=== PATIENT | male | born 1990 | race African-American/Black ===

== ENCOUNTER 2017-05-14 00:48 | Emergency (ER) | payer OTHER ==
[~2017-05-14] VITALS: Ht 172.7 cm; Wt 59.0 kg
[2017-05-14 00:52] VITALS: BP 124/80
== END 2017-05-14 01:42 | disposition home or self-care (01) ==
LOC: ER 00:53
DX: T45.0X5A Adverse effect of antiallergic and antiemetic drugs, initial encounter (principal); Y92.89 Other specified places as the place of occurrence of the external cause
CPT/HCPCS: 99281; A4606; Z7610; Z7502

== ENCOUNTER 2017-05-25 00:55 | Emergency (ER) | payer OTHER ==
[~2017-05-25] VITALS: Ht 170.2 cm; Wt 61.2 kg
--- NOTE | 2017-05-25 01:22 | NUR ---
PT BIBSELF C/O HAVING PANIC ATTACKS X PAST COUPLE DAYS FROM STRESS. PT AOX3 RR EVEN AND UNLABORED. NO SOB NOTED. NAD NOTED. NO NVD AT THIS TIME. PT PLACED ON MONITOR WAITING FOR MD BELCHER.
--- NOTE | 2017-05-25 01:54 | NUR ---
Patient discharged to home in stable condition. Written and verbal after care instructions given. Patient verbalizes understanding of instruction.
[2017-05-25 01:55] VITALS: BP 109/77
== END 2017-05-25 01:55 | disposition home or self-care (01) ==
LOC: ER 00:57
DX: F41.9 Anxiety disorder, unspecified (principal); G40.909 Epilepsy, unspecified, not intractable, without status epilepticus
CPT/HCPCS: 99284; A4606; Z7610

== ENCOUNTER 2017-06-18 14:36 | Emergency (ER) | payer OTHER ==
[~2017-06-18] VITALS: Ht 170.2 cm; Wt 61.2 kg
[2017-06-18 15:23] VITALS: BP 128/78
== END 2017-06-18 17:47 | disposition home or self-care (01) ==
LOC: ER 14:38
DX: J32.9 Chronic sinusitis, unspecified (principal); H61.22 Impacted cerumen, left ear; G40.909 Epilepsy, unspecified, not intractable, without status epilepticus; F41.9 Anxiety disorder, unspecified
CPT/HCPCS: A4606; Z7610

== ENCOUNTER 2017-06-24 12:12 | Emergency (ER) | payer OTHER ==
[~2017-06-24] VITALS: Ht 170.2 cm; Wt 59.9 kg
[2017-06-24 12:15] VITALS: BP 111/67
== END 2017-06-24 13:00 | disposition home or self-care (01) ==
LOC: ER 12:14
DX: Z00.8 Encounter for other general examination (principal); F41.9 Anxiety disorder, unspecified; G40.909 Epilepsy, unspecified, not intractable, without status epilepticus; R73.09 Other abnormal glucose
CPT/HCPCS: 82962; 99282; A4606; Z7610

== ENCOUNTER 2017-07-22 20:43 | Emergency (ER) | payer OTHER ==
[~2017-07-22] VITALS: Ht 170.2 cm; Wt 60.8 kg
[2017-07-22 20:52] VITALS: BP 127/82
--- NOTE | 2017-07-22 20:52 | NUR ---
REGGIE PAIN AT BEDSIDE FOR EVAL.
--- NOTE | 2017-07-22 20:59 | NUR ---
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
[2017-07-22 21:06] LABS: BASOPHILS # (AUTO) 0.1 /CMM (0.0-0.2); BASOPHILS % (AUTO) 2.1 % (0.0-2.0); EOSINOPHILS # (AUTO) 0.3 /CMM (0.0-0.7); EOSINOPHILS % (AUTO) 6.1 % (0.0-6.0); HEMATOCRIT 42 % (39-51); HEMOGLOBIN 14.4 g/dL (13.5-17.5); LYMPHOCYTES # (AUTO) 1.2 /CMM (0.8-4.8); LYMPHOCYTES % (AUTO) 25.1 % (20.0-44.0); MEAN CORPUSCULAR HEMOGLOBIN 27 PG (26.0-33.0); MEAN CORPUSCULAR HGB CONC 34 g/dl (31.0-36.0); MEAN CORPUSCULAR VOLUME 80 fL (80-96); MONOCYTES # (AUTO) 0.4 /CMM (0.1-1.30); NEUTROPHILS # (AUTO) 2.9 /CMM (1.8-8.9); NEUTROPHILS % (AUTO) 57.7 % (43.0-81.0); PLATELET COUNT (AUTO) 173 /CMM (150-450); RDW COEFFICIENT OF VARIATION 11.7 (11.5-15.0); RED BLOOD CELL COUNT(AUTO) 5.31 MIL/uL (4.5-6.0); WHITE BLOOD COUNT (AUTO) 4.9 K/uL (4.3-11.0)
[2017-07-22 21:18] LABS: CALCIUM, SERUM 8.5 mg/dL (8.5-10.1); CREATININE 1.2 mg/dL (0.6-1.3); POTASSIUM 3.7 mmol/L (3.5-5.1)
== END 2017-07-22 21:28 | disposition home or self-care (01) ==
LOC: ER 20:45
DX: M79.1 Myalgia (principal); R20.9 Unspecified disturbances of skin sensation; G40.909 Epilepsy, unspecified, not intractable, without status epilepticus; F41.9 Anxiety disorder, unspecified; Z88.1 Allergy status to other antibiotic agents; Z88.8 Allergy status to other drugs, medicaments and biological substances
CPT/HCPCS: 36415; 80048; 85025; 99284; A4606; Z7610

== ENCOUNTER 2017-08-25 20:46 | Emergency (ER) | payer OTHER ==
[~2017-08-25] VITALS: Ht 170.2 cm; Wt 61.2 kg
[2017-08-25 20:56] VITALS: BP 126/90
== END 2017-08-25 22:08 | disposition home or self-care (01) ==
LOC: ER 20:50
DX: F41.9 Anxiety disorder, unspecified (principal); G40.909 Epilepsy, unspecified, not intractable, without status epilepticus; Z88.1 Allergy status to other antibiotic agents; Z88.6 Allergy status to analgesic agent
CPT/HCPCS: 70450; 99284; A4606; Z7610

== ENCOUNTER 2017-10-08 16:11 | Emergency (ER) | payer OTHER ==
[~2017-10-08] VITALS: Ht 170.2 cm; Wt 61.2 kg
[2017-10-08 16:14] VITALS: BP 127/84
[2017-10-08] MEDS ORDERED: IBUPROFEN 600 MG TABLET PO ONE ×2 (16:53→17:00)
--- NOTE | 2017-10-08 16:55 | NUR ---
PT REFUSED MOTRIN. STS PAIN IS TOLERABLE AND HE IS COMFORTABLE AT THIS TIME.
[2017-10-08 17:06] LABS: BASOPHILS % (AUTO) 0.9 % (0.0-2.0); EOSINOPHILS # (AUTO) 0.1 /CMM (0.0-0.7); EOSINOPHILS % (AUTO) 3.3 % (0.0-6.0); HEMATOCRIT 44 % (39-51); HEMOGLOBIN 15.2 g/dL (13.5-17.5); LYMPHOCYTES # (AUTO) 1.3 /CMM (0.8-4.8); LYMPHOCYTES % (AUTO) 37.7 % (20.0-44.0); MEAN CORPUSCULAR HEMOGLOBIN 28 PG (26.0-33.0); MEAN CORPUSCULAR HGB CONC 34 g/dl (31.0-36.0); MEAN CORPUSCULAR VOLUME 81 fL (80-96); MONOCYTES # (AUTO) 0.2 /CMM (0.1-1.30); MONOCYTES % (AUTO) 5.6 % (2.0-12.0); NEUTROPHILS # (AUTO) 1.9 /CMM (1.8-8.9); NEUTROPHILS % (AUTO) 52.5 % (43.0-81.0); PLATELET COUNT (AUTO) 173 /CMM (150-450); RDW COEFFICIENT OF VARIATION 12.6 (11.5-15.0); RED BLOOD CELL COUNT(AUTO) 5.47 MIL/uL (4.5-6.0); WHITE BLOOD COUNT (AUTO) 3.6 K/uL (4.3-11.0)
[2017-10-08 17:17] LABS: CALCIUM, SERUM 8.9 mg/dL (8.5-10.1); CREATININE 1.2 mg/dL (0.6-1.3); POTASSIUM 3.6 mmol/L (3.5-5.1)
== END 2017-10-08 17:59 | disposition home or self-care (01) ==
LOC: ER 16:12
DX: S16.1XXA Strain of muscle, fascia and tendon at neck level, initial encounter (principal); M54.12 Radiculopathy, cervical region; F41.9 Anxiety disorder, unspecified; G40.909 Epilepsy, unspecified, not intractable, without status epilepticus; Z88.1 Allergy status to other antibiotic agents; Z88.6 Allergy status to analgesic agent; X58.XXXA Exposure to other specified factors, initial encounter; Y93.89 Activity, other specified; Y92.89 Other specified places as the place of occurrence of the external cause; Y99.8 Other external cause status
CPT/HCPCS: 36415; 72040; 80048; 85025; 99285; A4606; Z7610